=== PATIENT | female | born 1975 | race Two or more races ===

== ENCOUNTER 2017-02-13 10:40 | Emergency (ER) | payer OTHER ==
[2017-02-13 11:07] VITALS: BP 156/77; PULSE 66; TEMP 97.7; BMI 43.0
[2017-02-13] MEDS ORDERED: KETOROLAC TROMETHAMINE 30 MG/1 ML VIAL IM ONE (12:37)
[2017-02-13] MEDS ORDERED: diazePAM 5 MG TABLET PO ONE (12:38)
[2017-02-13] MEDS ORDERED: diazePAM 5 MG TABLET ONE (12:44)
[2017-02-13] MEDS ORDERED: KETOROLAC TROMETHAMINE 30 MG/1 ML VIAL ONE (12:44)
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
== END 2017-02-13 14:02 | disposition home or self-care (01) ==
LOC: JER 10:40 → JERFT 10:40 → JER 14:02
PROC: 3E0233Z Introduction of Anti-inflammatory into Muscle, Percutaneous Approach (ICD-10-PCS; principal; 2017-02-13)
DX: S39.012A Strain of muscle, fascia and tendon of lower back, initial encounter (principal); V43.52XA Car driver injured in collision with other type car in traffic accident, initial encounter; Y93.9 Activity, unspecified; Y92.410 Unspecified street and highway as the place of occurrence of the external cause; F17.210 Nicotine dependence, cigarettes, uncomplicated; Z98.84 Bariatric surgery status
CPT/HCPCS: 84703; 99281-25

== ENCOUNTER 2018-02-05 21:26 | Emergency (ER) | payer OTHER ==
[2018-02-05 21:35] VITALS: BP 138/82; PULSE 84; TEMP 97.6; BMI 41.9
--- NOTE | 2018-02-05 21:41 | PDOC ---
History of Present Illness - General History Source: Patient Exam Limitations: No Limitations - History of Present Illness Initial Comments: 02/05/18 21:49 The patient is a 42 year old female here today for evaluation of an episode of asthma. The patient reports that she has been feeling sick for the past week with symptoms of chills, congestion, and has been experiencing episodes of asthma despite taking her albuterol. The patient confirms receiving the flu vaccine this year. Patient denies headache, lightheadedness. Denies fever. Denies chest pain. Denies nausea, vomiting, diarrhea, abdominal pain. PAST MEDICAL HISTORY: asthma PAST SURGICAL HISTORY: no significant history FAMILY HISTORY: no pertinent history SOCIAL HISTORY: Pt lives with family and is employed. MEDICATIONS: reviewed ALLERGIES: As per nursing notes General: +chills. No fevers, no weakness, no weight loss HEENT: +congestion. No change in vision. No sore throat,. No ear pain CardioVascular: No chest pain Respiratory:No cough, or wheezing. Gastrointestinal: no nausea, vomiting, diarrhea or constipation, No rectal bleeding Genitourinary: No dysuria, hematuria, or frequency Musculoskeletal: No joint or muscle pain or swelling Neurologic: No headache, vertigo, dizziness or loss of consciousness Psychiatric: nor depression Skin: No rashes or easy bruising Endocrine: no increased thirst or abnormal weight change Allergic: no skin or latex allergy All other systems reviewed and normal General: Well-nourished well-developed individual, no acute distress HEENT: Throat: Normal, tonsils normal, no erythema or exudate Neck: Supple, no meningeal signs, no lymphadenopathy Eyes::Pupils equal reactive and round, extraocular motion intact Chest: Nontender to palpation Cardiac: S1-S2 normal, regular rate and rhythm, no murmurs rubs or gallops Respiratory: +mild wheezing Abdomen: Soft, nondistended, normal bowel sounds, nontender to palpation diffusely Extremities: Warm, dry, no cyanosis, clubbing, or edema Skin: No rashes Neuro: Alert and oriented x3, nonfocal exam, grossly intact, normal gait Psych: Normal mood and affect <Be Sommers - Last Filed: 02/05/18 22:19> - General History Source: Patient Exam Limitations: No Limitations - History of Present Illness Initial Comments: 02/05/18 22:18 A portion of this note was documented by scribe services under my direction. I have reviewed the details of the note, within reason, and agree with the documentation with the following case summary and management plan written by me. Patient treated in the ED. Nursing notes are reviewed and incorporated into the medical decision-making. Vital signs reviewed. Assessment plan: This is a 43-year-old female who comes in complaining of shortness of breath. Patient has history of asthma. Patient had a recent URI and said that her asthma loss doing kicks up after a URI. Patient given a DuoNeb 2 and 60 mg of prednisone. Patient's improved and discharged home will follow-up with her primary care doctor. Patient had prescription of prednisone sent to her pharmacy <Nora Frias I - Last Filed: 02/05/18 22:42> - General Chief Complaint: Respiratory Stated Complaint: SOB, COUGH Time Seen by Provider: 02/05/18 21:40 Past History <Be Sommers - Last Filed: 02/05/18 22:19> - Past Medical History Asthma: Yes COPD: No - Surgical History Abdominal Surgery: Yes (GASTRIC SLEEVE) Appendectomy: Yes - Suicide/Smoking/Psychosocial Hx Smoking History: Never smoked Have you smoked in the past 12 months: Yes Number of Cigarettes Smoked Daily: 7 'Breaking Loose' booklet given: 02/13/17 Hx Alcohol Use: No Drug/Substance Use Hx: No Substance Use Type: None <Nora Frias I - Last Filed: 02/05/18 22:42> - Past Medical History Allergies/Adverse Reactions: Allergies Allergy/AdvReac Type Severity Reaction Status Date / Time erythromycin base Allergy Verified 02/13/17 11:04 Home Medications: Ambulatory Orders Albuterol 0.083% Nebulizer Emily [Ventolin 0.083% Nebulizer Soln -] 1 amp NEB Q4H PRN #30 amp 02/05/18 Albuterol Sulfate [Proair Hfa] 8.5 gm IH PRN PRN 02/05/18 Fluticasone Prop 0.05% Nasal [Flonase -] 1 spray NS DAILY 02/05/18 Prednisone [Deltasone] 60 mg PO DAILY #12 tablet 02/05/18 *Physical Exam - Vital Signs Last Vital Signs Temp Pulse Resp BP Pulse Ox 97.6 F 84 16 138/82 97 12/06/18 21:30 02/05/18 21:30 02/05/18 21:30 02/05/18 21:30 02/05/18 21:30 <Be Sommers - Last Filed: 02/05/18 22:19> - Vital Signs Last Vital Signs Temp Pulse Resp BP Pulse Ox 97.6 F 84 16 138/82 97 02/05/18 21:30 02/05/18 21:30 02/05/18 21:30 02/05/18 21:30 02/05/18 21:30 <Nora Frias I - Last Filed: 02/05/18 22:42> Moderate Sedation - Procedure Monitoring Vital Signs: Procedure Monitoring Vital Signs Temperature 97.6 F 02/05/18 21:30 Pulse Rate 84 02/05/18 21:30 Respiratory Rate 16 02/05/18 21:30 Blood Pressure 138/82 02/05/18 21:30 O2 Sat by Pulse Oximetry (%) 97 02/05/18 21:30 <Be Sommers - Last Filed: 02/05/18 22:19> - Procedure Monitoring Vital Signs: Procedure Monitoring Vital Signs Temperature 97.6 F 02/05/18 21:30 Pulse Rate 84 02/05/18 21:30 Respiratory Rate 16 02/05/18 21:30 Blood Pressure 138/82 02/05/18 21:30 O2 Sat by Pulse Oximetry (%) 97 02/05/18 21:30 <Nora Frias I - Last Filed: 02/05/18 22:42> *DC/Admit/Observation/Transfer - Attestations Scribe Attestion: 02/05/18 21:49 Documentation prepared by ORTIZ Gage, acting as medical device sales for Nora Frias MD. <Be Sommers - Last Filed: 02/05/18 22:19> - Discharge Dispostion Decision to Admit order: No <Nora Frias I - Last Filed: 02/05/18 22:42> Diagnosis at time of Disposition: Asthma exacerbation attacks Qualifiers: Asthma severity: mild Asthma persistence: intermittent Qualified Code(s): J45.21 - Mild intermittent asthma with (acute) exacerbation - Discharge Dispostion Disposition: HOME Condition at time of disposition: Stable - Prescriptions Prescriptions: Albuterol 0.083% Nebulizer Emily [Ventolin 0.083% Nebulizer Soln -] 1 amp NEB Q4H PRN #30 amp PRN Reason: Wheezing Prednisone [Deltasone] 60 mg PO DAILY #12 tablet - Referrals Referrals: ON STAFF,NOT [Primary Care Provider] - - Patient Instructions Additional Instructions: Take prednisone 60 mg a day for 4 days. Continue the use of your inhalers as prescribed. Return to the emergency department immediately with ANY new, persistent or worsening symptoms. Continue any medications as previously prescribed by your physician. You should follow up with your primary doctor as soon as possible regarding today's emergency department visit. . Please make sure your doctor reviews the results of your emergency evaluation. Thank you for coming to the Emergency Department today for your care. It was a pleasure to see you today. Please note that your evaluation is INCOMPLETE until you follow-up with your doctor. - Post Discharge Activity
[2018-02-05] MEDS ORDERED: predniSONE 20 MG TABLET (UD) PO ONE (21:44)
[2018-02-05] MEDS ORDERED: ALBUTEROL SO4 2.5/IPRATROPIUM 0.5 INH SOL 3 ML VIAL.NEB. NEB ONE ×4 (21:44→22:17)
[2018-02-05] MEDS ORDERED: predniSONE 20 MG TABLET (UD) ONE (21:46)
== END 2018-02-05 22:41 | disposition home or self-care (01) ==
LOC: FER 21:26
PROC: 3E0F7GC Introduction of Other Therapeutic Substance into Respiratory Tract, Via Natural or Artificial Opening (ICD-10-PCS; principal; 2018-02-05)
DX: J45.21 Mild intermittent asthma with (acute) exacerbation (principal); Z98.84 Bariatric surgery status; J45.909 Unspecified asthma, uncomplicated; Z87.891 Personal history of nicotine dependence
CPT/HCPCS: 99282-25

== ENCOUNTER 2024-01-21 12:11 | Emergency (ER) | payer OTHER ==
[2024-01-21 12:35] VITALS: BP 135/95; PULSE 92; RESP 18; TEMP 98.1; BMI 47.7
[2024-01-21] MEDS ORDERED: MECLIZINE HCL 25 MG TABLET (FP) ONE (12:49)
[2024-01-21] MEDS ORDERED: METOCLOPRAMIDE HCL INJECTION 10 MG/2 ML VIAL ONE (12:49)
[2024-01-21] MEDS ORDERED: ACETAMINOPHEN INJECTION 100 ML ONE (12:49)
[2024-01-21] MEDS: MECLIZINE HCL 25 MG TABLET (FP) PO ONE (13:08)
[2024-01-21] MEDS: ACETAMINOPHEN 1000 MG/100 ML BAG IVPB ONE (13:08)
[2024-01-21] MEDS: METOCLOPRAMIDE HCL INJECTION 10 MG/2 ML VIAL IVPB ONE (13:09)
[2024-01-21 13:18] LABS: HCG,QUALITATIVE URINE Negative
[2024-01-21 13:23] LABS: HEMATOCRIT 34.6 % (32.4-45.2); HEMOGLOBIN 10.6 G/dL (10.7-15.3); MCHC 30.7 g/dl (32.0-36.0); MEAN CELL VOLUME 64.6 fl (80-96); MEAN PLT VOLUME 8.9 fl (7.5-11.1); PLATELET COUNT 439.7 10^3/uL (134-434); RBC 5.35 10^6/uL (3.60-5.2); RDW 23.3 % (11.6-15.6)
[2024-01-21 13:25] LABS: MCH 19.9 pg (25.7-33.7)
[2024-01-21 13:27] LABS: PLATELET ESTIMATE ADEQUATE
[2024-01-21 13:30] LABS: EPITHELIAL CELLS 0-5 /hpf; URINE MUCUS 2+
[2024-01-21 13:33] LABS: ALBUMIN 4.4 g/dl (3.4-5.0); BILIRUBIN,TOTAL 0.4 mg/dl (0.2-1); CALCIUM 9.7 mg/dl (8.5-10.1); CREATININE 0.9 mg/dl (0.6-1.3); POTASSIUM 4.2 mmol/L (3.5-5.1); TOT PROT 7.8 g/dl (6.4-8.2)
[2024-01-22 00:55] LABS: HIV INTERPRETATION NEGATIVE (NEGATIVE)
== END 2024-01-21 15:49 | disposition home or self-care (01) ==
LOC: FER 12:11
DX: R42 Dizziness and giddiness (principal); R51.9 Headache, unspecified
CPT/HCPCS: 36415; 70450-TC; 80053; 81003; 81015; 84484; 84703; 85027; 86803; 87086; 87389; 93005; 99285-25; J0131